=== PATIENT | female | born 1965 | race Caucasian/White ===

== ENCOUNTER 2017-06-08 15:53 | Emergency (ER) | payer BC ==
[2017-06-08 15:56] VITALS: BP 163/79; PULSE 86; RESP 20; TEMP 98.1; O2SAT 93
--- NOTE | 2017-06-08 17:20 | PD ---
HPI Chief Complaint: Cold / Flu Symptoms Time Seen by Provider: 17:14 Travel History International Travel<30 days: No Contact w/Intl Traveler<30days: No Traveled to known affect area: No History of Present Illness HPI 52-year-old female presents to the ED for evaluation of 2 week history of cough. She states that her other cold symptoms had resolved and she now has a lingering cough and wheezing. Cough occasionally productive of mucus. She denies fever, chills, sinus congestion, runny nose, sore throat. She did not receive this years flu vaccine. Endorses history of seasonal allergies. She denies history of asthma. She is a nonsmoker. Patient states that her is a physician and prescribed a Z-Brien which she completed. [facility] Social History Tobacco Use: No Allergies-Medications (Allergen,Severity, Reaction): Coded Allergies: levofloxacin (Verified Allergy, Unknown, 06/08/17) Reported Meds & Prescriptions Reported Meds & Active Scripts Active Tessalon Perles (Benzonatate) 100 Mg Cap 200 Mg PO TID PRN Proair Hfa 8.5 GM Inh (Albuterol Sulfate) 90 Mcg/Act Aer 2 Puff INH Q6H PRN 108 mcg/actuation Prednisone 20 Mg Tab 40 Mg PO DAILY Take 40 mg (2 tablets) daily for 5 days Review of Systems Except as stated in HPI: all other systems reviewed are Neg Physical Exam Narrative GENERAL: Well-nourished, well-developed white female in no acute distress. SKIN: Warm and dry. HEAD: Normocephalic. Atraumatic. EYES: No scleral icterus. No injection or drainage. PERRLA. EOMI. ENT: Pearly jose tympanic membranes bilaterally. Nasal mucosa is moist. Oropharynx without erythema, edema or exudate. NECK: Supple, trachea midline. No JVD or lymphadenopathy. CARDIOVASCULAR: Regular rate and rhythm without murmurs, gallops, or rubs. RESPIRATORY: Breath sounds equal bilaterally. Diffuse expiratory wheezing bilaterally. Wet sounding cough. No accessory muscle use. GASTROINTESTINAL: Abdomen soft, non-tender, nondistended. + Bowel sounds MUSCULOSKELETAL: No cyanosis, or edema. BACK: Nontender without obvious deformity. No CVA tenderness. Data Data Last Documented VS Vital Signs Date Time Temp Pulse Resp B/P (MAP) Pulse Ox O2 Delivery O2 Flow Rate FiO2 06/08/17 18:41 06/08/17 18:22 90 16 93 Room Air 06/08/17 15:56 98.1 Orders Orders Chest, Single Ap (06/08/17 17:17) Albuterol-Ipratropium Neb (Duoneb Neb) (06/08/17 17:30) Prednisone (Deltasone) (06/08/17 17:30) Ed Discharge Order (06/08/17 18:32) MDM Medical Decision Making Medical Screen Exam Complete: Yes Emergency Medical Condition: Yes Differential Diagnosis Viral syndrome versus bronchitis versus pneumonia versus other Narrative Course 52-year-old female presents to the ED for evaluation of 2 week history of cough. She states that her other cold symptoms had resolved and she now has a lingering cough and wheezing. Cough occasionally productive of mucus. She is a nonsmoker. Patient states that her is a physician and prescribed a Z- Brien which she completed. Vitals reviewed. She is afebrile, O2 sat 93% on presentation. Physical exam reveals a nontoxic-appearing white female in no acute distress. ENT exam is unremarkable. Patient does have a wet sounding cough and wheezing in bilateral lung quintero. Patient was administered 20 mg prednisone and 2 nebs 2. Chest x-ray reveals no acute disease per radiology read. Patient reports improvement of symptoms on recheck. O2 sats improved on recheck. This is bronchitis. Patient's prescribed a short course of steroids, rescue inhaler and benzonatate. She is instructed to take the medications as prescribed, return for worsening symptoms, otherwise follow up with her primary care provider. She indicated understanding of instructions and is agreeable with the care plan. She is stable and discharged home. Diagnosis Primary Impression: Bronchitis Referrals: Primary Care Physician Patient Instructions: Acute Bronchitis (ED), General Instructions Additional Instructions: Rest, hydrate. Take the prednisone as prescribed. Use rescue inhaler as prescribed as needed. Take Tessalon as prescribed. Follow-up with the primary care provider. Return to the ED for any emergent medical condition. Med/Other Pt SpecificInfo: Prescription(s) given Scripts Benzonatate (Tessalon Perles) 100 Mg Cap 200 MG PO TID Y for COUGH, #20 CAP 0 Refills Prov: Taylor Downs MD 06/08/17 Albuterol 8.5 GM Inh (Proair Hfa 8.5 GM Inh) 90 Mcg/Act Aer 2 PUFF INH Q6H Y for SHORTNESS OF BREATH, #1 INHALER 0 Refills 108 mcg/actuation Prov: Taylor Downs MD 06/08/17 Prednisone (Prednisone) 20 Mg Tab 40 MG PO DAILY, #10 TAB 0 Refills Take 40 mg (2 tablets) daily for 5 days Prov: Taylor Downs MD 06/08/17 Disposition: 01 DISCHARGE HOME Condition: Stable Marci Mcintosh Jun 08, 2017 17:20
[2017-06-08] MEDS: RESP: ALBUTEROL 2.5 MG/IPRATROPIUM 0.5 MG NEB (SCH) INH (17:26)
[2017-06-08] MEDS ORDERED: predniSONE 20 MG TAB PO ONE (17:30)
--- NOTE | 2017-06-08 18:05 | RADRPT ---
EXAM DATE/TIME: 06/08/2017 17:31 [facility] COMPARISON: No previous studies available for comparison. INDICATIONS : Cough, wheezing for 2 weeks. MEDICAL HISTORY : None. SURGICAL HISTORY : None. ENCOUNTER: Initial ACUITY: 2 weeks PAIN SCORE: 0/10 LOCATION: Bilateral chest FINDINGS: A single view of the chest demonstrates the lungs to be symmetrically aerated without evidence of mas s, infiltrate or effusion. The cardiomediastinal contours are unremarkable. Osseous structures are intact. CONCLUSION: No acute disease. Fernie Monson Jr., MD on June 08, 2017 at 18:01 Board Certified Radiologist. This report was verified electronically.
[2017-06-08] MEDS ORDERED: ALBUAER3 INH (18:08)
[2017-06-08] MEDS ORDERED: BENZ100 PO (18:08)
[2017-06-08] MEDS ORDERED: PRED20 PO (18:08)
[2017-06-08 18:22] VITALS: BP 123/61; PULSE 90; RESP 16; O2SAT 93
== END 2017-06-08 18:41 | disposition home or self-care (01) ==
LOC: PHED 15:53 → PHEFT 18:41
DX: J40 Bronchitis, not specified as acute or chronic (principal); Z88.8 Allergy status to other drugs, medicaments and biological substances
CPT/HCPCS: 71045; 94640; 94664; 99284; J7512